=== PATIENT | male | born 1990 | race Caucasian/White ===

== ENCOUNTER 2022-06-26 07:37 | Emergency (ER) | payer OTHER, SELFPAY ==
--- NOTE | ~2022-06-26 | XR_ITS ---
XR chest 2V DATE: 06/26/2022 08:29 INDICATION: Left upper posterior chest pain TECHNIQUE: PA and lateral views COMPARISON: None FINDINGS: There is levoscoliosis of cervical and upper thoracic spine and mild dextro scoliosis of th e mid to lower thoracic spine. Normal heart size. No hilar or mediastinal enlargement. The lungs are clear. No pleural effusion or p ulmonary vascular congestion or pneumothorax. IMPRESSION: No active cardiopulmonary disease Scoliosis Reviewed, dictated and finalized at location A. ENT SAFETY OFFICER
[2022-06-26 07:43] VITALS: BP 139/106; PULSE 63; RESP 18; TEMP 36.7; O2SAT 100
[2022-06-26] MEDS: hydrOXYzine pamoate 25 MG CAPSULE 50 MG PO (08:33)
--- NOTE | 2022-06-26 08:33 | ED.BACK ---
HPI - Back Pain/Injury General Chief Complaint: Back Pain/Injury Stated Complaint: back and neck pain Time Seen by Provider: 06/26/22 08:06 Source: patient and family Mode of arrival: ambulatory Limitations: no limitations History of Present Illness HPI Narrative: 32 years old -[place] male came by private car from home complaining of left upper back pain started 2 days ago, denies any trauma, fever, chills, coughing, radiation of pain or chest pain. The pain gets worse with certain neck movement and position, get better remaining still. Patient denies having similar symptoms in the past. Related Data Allergies Allergy/AdvReac Type Severity Reaction Status Date / Time No Known Allergies Allergy Verified 06/26/22 07:49 Review of Systems Review of Systems: All systems reviewed & are unremarkable except as noted in HPI and below Exam Narrative: General appearance: Well-developed, well-nourished Skin: Normal color Head: Normocephalic, nontraumatic Eyes: Clear conjunctiva ENT: Oropharynx normal, ears normal, nose normal Neck: Supple, nontender Chest and respiratory: Airway patent, no respiratory distress, no accessory muscle use Heart: Regular rate/rhythm Abdomen: Soft, nontender, no organomegaly, quiet bowel sounds Vascular: Normal peripheral pulses, normal capillary refill. Musculoskeletal: Diffuse tenderness left upper back at the paraspinous area, no bruises, no swelling or rash. Neurologic: Alert and oriented ?3, [employer] is normal as tested, no gross motor deficit Course Vital Signs Vital signs: Vital Signs Temperature 36.7 C 06/26/22 07:43 Pulse Rate 63 06/26/22 07:43 Respiratory Rate 18 06/26/22 07:43 Blood Pressure 139/106 H 06/26/22 07:43 Pulse Oximetry 100 06/26/22 07:43 Temperature 36.7 C 06/26/22 07:43 Pulse Rate 63 06/26/22 07:43 Respiratory Rate 18 06/26/22 07:43 Blood Pressure 139/106 H 06/26/22 07:43 Pulse Oximetry 100 06/26/22 07:43 MDM - Back Pain/Injury MDM Narrative Medical decision making narrative: Patient presents with nontraumatic pain at the left upper back. Physical examination showed diffuse tenderness without rash or swelling, Musculoskeletal pain, pneumothorax are my concern. Chest x-ray ordered which showed no acute abnormalities. Musculoskeletal pain is my concern at this time patient will be discharged home on anti-inflammatory medications and muscle relaxant. Patient received Toradol 60 mg IV M, Valium 5 mg orally, Vistaril 50 mg orally prior to discharge with good result. Imaging Data Radiologist's impression: Impressions Chest X-Ray 06/26/22 09:00 IMPRESSION: No active cardiopulmonary disease Scoliosis Critical Care Time Critical Care Time Critical Care Time: Yes Total Critical Care Time: 10 Discharge Plan Discharge Clinical Impression: Back pain Patient Disposition: Home, Self-Care Condition: Stable Instructions: Antibiotic Form, Back Pain (ED) Additional Instructions: Return if symptoms are worsening , call your family physician for appointment, take Tylenol as as needed for aches and pain, continue home medications. Prescriptions: New naproxen [Naprosyn] 500 mg tablet 500 mg PO BID PRN (Reason: pain) Qty: 14 0RF cyclobenzaprine 10 mg tablet 10 mg PO TID PRN (Reason: muscle spasm) Qty: 20 0RF Follow-up/Referrals: PHYSICIAN NOT ON STAFF,NONSTAFF [Primary Care Provider] - Domenic Kincaid MD [Physician] - 06/28/22
[2022-06-26] MEDS: diazePAM (*CRX) 5 MG TABLET PO (08:34)
[2022-06-26] MEDS: KETOROLAC (*BKC) 60 MG/2 ML VIAL IM (08:34)
[2022-06-26 09:15] VITALS: BP 123/85; PULSE 67; RESP 18; O2SAT 100
== END 2022-06-26 09:32 | disposition home or self-care (01) ==
PROVIDERS: Emergency Provider Emergency Medicine
DX: M54.6 Pain in thoracic spine (principal); M41.9 Scoliosis, unspecified
CPT/HCPCS: 71046; 96372; 99283; A9270; J1885